=== PATIENT | male | born 1985 ===

== ENCOUNTER 2022-09-22 17:27 | Emergency (ER) | payer MEDICAID ==
[~2022-09-22] VITALS: Ht 185.4 cm; Wt 75.0 kg
[2022-09-22 17:49] VITALS: BP 107/79
== END 2022-09-22 19:06 ==
LOC: ER 17:28
DX: M95.5 Acquired deformity of pelvis (principal); G89.29 Other chronic pain; F17.200 Nicotine dependence, unspecified, uncomplicated
CPT/HCPCS: 74018; 99283